=== PATIENT | male | born 1950 | race Two or more races ===

== ENCOUNTER 2021-02-05 15:01 | Inpatient (IN) | payer OTHER ==
[~2021-02-05] VITALS: Ht 172.7 cm; Wt 101.7 kg
[2021-02-05] MEDS ORDERED: dilTIAZem 25 MG/5 ML VIAL IV ONE (15:15)
[2021-02-05 15:57] LABS: Basophils # (auto) 0.1 10 ^3/uL (0-0.2); Eosinophils # (auto) 0.2 10 ^3/uL (0-0.8); Hematocrit 44.9 % (41.0-53.0); Hemoglobin 14.9 g/dL (13.5-17.5); Lymphocytes # (auto) 1.4 10 ^3/uL (0.4-5.4); Lymphocytes % (auto) 26.6 % (10.0-50.0); Mean Corpuscular Hemoglobin 29.7 pg (28.0-32.0); Mean Corpuscular Hgb Conc. 33.2 g/dL (32.0-36.0); Mean Corpuscular Volume 89.5 fL (80.0-100.0); Monocytes # (auto) 0.7 10 ^3/uL (0-1.3); Monocytes % (auto) 12.1 % (0.0-12.0); Neutrophils # (auto) 3.1 10 ^3/uL (1.6-8.6); Neutrophils % (auto) 56.3 % (37.0-80.0); Nucleated Red Blood Cells % 0.2 %; Platelet Count (auto) 313 10^3/uL (140-450); Red Blood Cells 5.01 10^6/uL (4.5-5.90); Red Cell Distribution Width 14.4 % (11.8-14.3); White Blood Cell 5.5 10^3/uL (4.4-10.8)
[2021-02-05] MEDS ORDERED: dilTIAZem 125mg/125ml BAG KIT 125 ML IV ONE (16:00)
[2021-02-05 16:17] LABS: Albumin 3.3 g/dL (3.4-5.0); Carbon Dioxide 21 mmol/L (21-32); Glucose 90 mg/dL (74-106); Magnesium 2.4 mg/dL (1.6-2.6)
[2021-02-05 16:57] LABS: Alanine Aminotransferase 26 U/L (16-61); Aspartate Aminotransferase 20 U/L (15-37); GFR African American 109 mL/min; GFR Non-African American 90 mL/min; Potassium 3.6 mmol/L (3.5-5.1); Sodium 139 mmol/L (136-145)
[2021-02-05 17:03] LABS: Alkaline Phosphatase 77 U/L (45-117); Bilirubin, Total 0.6 mg/dL (0.2-1.0); Total Protein 7.2 g/dL (6.4-8.2)
[2021-02-05 17:08] LABS: CRP High Sensitivity 0.742 mg/dL (< 0.3)
[2021-02-05 17:12] LABS: Anion Gap 10 (5-15); BUN/Creatinine Ratio 11.4; Blood Urea Nitrogen 10 mg/dL (7-18); Chloride 108 mmol/L (98-107)
[2021-02-05] MEDS ORDERED: ASPirin 81 mg TAB PO ONE (17:15)
[2021-02-05] MEDS ORDERED: LORazepam 0.5 MG TAB PO PRN (20:15)
[2021-02-05] MEDS ORDERED: MORPHINE SULF INJ 2 MG/ML SYRINGE 1ML IV PRN ×2 (20:15)
[2021-02-05] MEDS ORDERED: DOCUSATE CALCIUM 240 MG CAP PO PRN (20:15)
[2021-02-05] MEDS ORDERED: ACETAMINOPHEN 500 MG TAB PO PRN (20:15)
[2021-02-05] MEDS ORDERED: ONDANSETRON HCL 4 MG/2 ML VIAL IV PRN (20:15)
[2021-02-05] MEDS ORDERED: NITROGLYCERIN 0.4 MG SL TAB SL PRN (20:15)
[2021-02-05] MEDS ORDERED: LABETALOL HCL 5 MG/ML 4ML SYRINGE IV PRN (20:15)
[2021-02-05 22:45] VITALS: BP 121/69
[2021-02-05 23:00] VITALS: BP 121/69
[2021-02-05 23:15] VITALS: BP 109/68
[2021-02-05 23:30] VITALS: BP 107/71
[2021-02-05 23:45] VITALS: BP 106/71
[2021-02-06] VITALS (42 sets, daily range): BP systolic 73–117; BP diastolic 58–82
[2021-02-06] MEDS ORDERED: dilTIAZem 25 MG/5 ML VIAL IV ONE ×3 (00:46→00:55)
[2021-02-06 05:05] LABS: Basophils # (auto) 0.1 10 ^3/uL (0-0.2); Basophils % (auto) 2.1 % (0.0-2.0); Eosinophils # (auto) 0.3 10 ^3/uL (0-0.8); Eosinophils % (auto) 5.1 % (0.0-7.0); Hematocrit 41.1 % (41.0-53.0); Hemoglobin 13.8 g/dL (13.5-17.5); Lymphocytes # (auto) 1.2 10 ^3/uL (0.4-5.4); Lymphocytes % (auto) 21.7 % (10.0-50.0); Mean Corpuscular Hgb Conc. 33.5 g/dL (32.0-36.0); Mean Corpuscular Volume 89.7 fL (80.0-100.0); Monocytes # (auto) 0.7 10 ^3/uL (0-1.3); Monocytes % (auto) 12.2 % (0.0-12.0); Neutrophils # (auto) 3.2 10 ^3/uL (1.6-8.6); Neutrophils % (auto) 58.9 % (37.0-80.0); Nucleated Red Blood Cells % 0.1 %; Platelet Count (auto) 275 10^3/uL (140-450); Red Blood Cells 4.59 10^6/uL (4.5-5.90); Red Cell Distribution Width 14.7 % (11.8-14.3); White Blood Cell 5.5 10^3/uL (4.4-10.8)
[2021-02-06 05:21] LABS: INR 1.17 (0.9-1.15)
[2021-02-06 05:22] LABS: Albumin 2.9 g/dL (3.4-5.0); Calcium 8.5 mg/dL (8.5-10.1); Potassium 3.9 mmol/L (3.5-5.1)
[2021-02-06 05:27] LABS: BUN/Creatinine Ratio 10.3; Bilirubin, Total 0.7 mg/dL (0.2-1.0); Total Protein 6.2 g/dL (6.4-8.2)
[2021-02-06] MEDS ORDERED: AMIODARONE HCL 150 MG in D5W 5% 100 ML IV ONE (09:15)
[2021-02-06] MEDS ORDERED: FUROSEMIDE 20 MG/2 ML VIAL IV ONE (09:30)
[2021-02-06] MEDS ORDERED: ADENOSINE 89 MG in GIVE UN-DILUTED 0 ML IV STA (09:34)
[2021-02-06 09:40] LABS: Cholesterol 101 mg/dL (< 200)
[2021-02-06 09:55] LABS: HDL Cholesterol 27 mg/dL (40-59); LDL Cholesterol 68 mg/dL (< 100); Triglycerides 81 mg/dL (< 150)
[2021-02-06] MEDS ORDERED: ENOXAPARIN SOD 40 MG/0.4 ML SYRINGE SC SCH (10:00)
[2021-02-06] MEDS: AMIODARONE HCL 200 MG TAB PO SCH ×2 (11:09→22:39)
[2021-02-06] MEDS: PANTOPRAZOLE 40 MG TAB PO SCH (11:09)
[2021-02-06] MEDS ORDERED: OPTISON 3ml Vial for INJ IV ONE (12:19)
[2021-02-06] MEDS ORDERED: POTASSIUM CHL 20 Meq TABLET PO ONE (17:00)
[2021-02-06] MEDS: FUROSEMIDE 20 MG/2 ML VIAL IV SCH (18:39)
[2021-02-06] MEDS ORDERED: DIGOXIN (250MCG/ML) 2 ML AMPULE IV ONE ×2 (20:00→22:00)
[2021-02-06] MEDS ORDERED: dilTIAZem 120MG ER CAP PO ONE (21:30)
[2021-02-06] MEDS: ATORVASTATIN 20 MG TAB PO SCH (22:39)
[2021-02-06] MEDS: APIXABAN 5 MG TAB PO SCH (22:39)
[2021-02-07 05:00] VITALS: BP 122/80
[2021-02-07] MEDS: FUROSEMIDE 20 MG/2 ML VIAL IV SCH ×2 (06:32→18:26)
[2021-02-07 06:44] LABS: Basophils # (auto) 0.1 10 ^3/uL (0-0.2); Basophils % (auto) 0.9 % (0.0-2.0); Eosinophils # (auto) 0.2 10 ^3/uL (0-0.8); Eosinophils % (auto) 3.4 % (0.0-7.0); Hematocrit 43.2 % (41.0-53.0); Hemoglobin 14.5 g/dL (13.5-17.5); Lymphocytes # (auto) 0.9 10 ^3/uL (0.4-5.4); Lymphocytes % (auto) 13.7 % (10.0-50.0); Mean Corpuscular Hemoglobin 29.9 pg (28.0-32.0); Mean Corpuscular Hgb Conc. 33.5 g/dL (32.0-36.0); Mean Corpuscular Volume 89.1 fL (80.0-100.0); Monocytes # (auto) 0.7 10 ^3/uL (0-1.3); Monocytes % (auto) 10.5 % (0.0-12.0); Neutrophils # (auto) 4.8 10 ^3/uL (1.6-8.6); Neutrophils % (auto) 71.5 % (37.0-80.0); Nucleated Red Blood Cells % 0.1 %; Platelet Count (auto) 266 10^3/uL (140-450); Red Blood Cells 4.84 10^6/uL (4.5-5.90); Red Cell Distribution Width 14.7 % (11.8-14.3); White Blood Cell 6.8 10^3/uL (4.4-10.8)
[2021-02-07 07:00] LABS: Potassium 3.8 mmol/L (3.5-5.1)
[2021-02-07 07:06] LABS: BUN/Creatinine Ratio 9.5; Calcium 8.7 mg/dL (8.5-10.1)
[2021-02-07 09:00] VITALS: BP 122/74
[2021-02-07] MEDS: DIGOXIN 0.125 MG TAB PO SCH (09:06)
[2021-02-07] MEDS: POTASSIUM CHL 20 Meq TABLET PO SCH (09:06)
[2021-02-07] MEDS: AMIODARONE HCL 200 MG TAB PO SCH ×2 (09:06→21:58)
[2021-02-07] MEDS: APIXABAN 5 MG TAB PO SCH ×2 (09:06→21:58)
[2021-02-07] MEDS: PANTOPRAZOLE 40 MG TAB PO SCH (09:07)
[2021-02-07] MEDS ORDERED: dilTIAZem 120MG ER CAP PO SCH ×2 (10:00→22:00)
[2021-02-07] MEDS: LISINOPRIL 5 MG TAB PO SCH (12:38)
[2021-02-07 13:00] VITALS: BP 111/70
[2021-02-07 17:00] VITALS: BP 99/58
[2021-02-07 21:47] VITALS: BP 103/65
[2021-02-07] MEDS: ATORVASTATIN 20 MG TAB PO SCH (21:59)
[2021-02-08 04:52] VITALS: BP 117/78
[2021-02-08] MEDS: FUROSEMIDE 20 MG/2 ML VIAL IV SCH (05:51)
[2021-02-08 07:06] LABS: Basophils # (auto) 0.1 10 ^3/uL (0-0.2); Basophils % (auto) 0.7 % (0.0-2.0); Eosinophils # (auto) 0.3 10 ^3/uL (0-0.8); Eosinophils % (auto) 4.2 % (0.0-7.0); Hematocrit 45.3 % (41.0-53.0); Hemoglobin 15.1 g/dL (13.5-17.5); Lymphocytes # (auto) 1.1 10 ^3/uL (0.4-5.4); Lymphocytes % (auto) 15.7 % (10.0-50.0); Mean Corpuscular Hemoglobin 29.7 pg (28.0-32.0); Mean Corpuscular Hgb Conc. 33.3 g/dL (32.0-36.0); Mean Corpuscular Volume 89.1 fL (80.0-100.0); Monocytes # (auto) 0.8 10 ^3/uL (0-1.3); Monocytes % (auto) 11.6 % (0.0-12.0); Neutrophils # (auto) 4.9 10 ^3/uL (1.6-8.6); Neutrophils % (auto) 67.8 % (37.0-80.0); Nucleated Red Blood Cells % 0.2 %; Platelet Count (auto) 293 10^3/uL (140-450); Red Blood Cells 5.08 10^6/uL (4.5-5.90); Red Cell Distribution Width 14.3 % (11.8-14.3); White Blood Cell 7.2 10^3/uL (4.4-10.8)
[2021-02-08 07:28] LABS: Potassium 3.5 mmol/L (3.5-5.1)
[2021-02-08 07:34] LABS: BUN/Creatinine Ratio 9.1; Calcium 8.6 mg/dL (8.5-10.1)
[2021-02-08 09:00] VITALS: BP 108/67
[2021-02-08] MEDS: APIXABAN 5 MG TAB PO SCH (09:34)
[2021-02-08] MEDS: POTASSIUM CHL 20 Meq TABLET PO SCH (09:35)
[2021-02-08] MEDS: LISINOPRIL 5 MG TAB PO SCH (09:35)
[2021-02-08] MEDS: PANTOPRAZOLE 40 MG TAB PO SCH (09:35)
[2021-02-08] MEDS: DIGOXIN 0.125 MG TAB PO SCH (09:35)
[2021-02-08] MEDS: AMIODARONE HCL 200 MG TAB PO SCH (09:35)
[2021-02-08 12:48] VITALS: BP 103/73
[2021-02-08 14:10] VITALS: BP 108/67
== END 2021-02-08 16:05 | disposition home or self-care (01) | DRG 308 ==
LOC: ER 15:01 → TELE 20:12 → DOU IN ICU 22:35 → TELE-EAST 02-06 12:57
PROVIDERS: ADMIT Family Medicine; ATTEND Internal Medicine Nephrology
DX: I48.91 Unspecified atrial fibrillation (principal); I50.41 Acute combined systolic (congestive) and diastolic (congestive) heart failure; J96.01 Acute respiratory failure with hypoxia; E66.9 Obesity, unspecified; E78.5 Hyperlipidemia, unspecified; Z90.49 Acquired absence of other specified parts of digestive tract; R73.03 Prediabetes; R00.0 Tachycardia, unspecified; Z20.822 Contact with and (suspected) exposure to COVID-19
CPT/HCPCS: 36415; 71045; 78452; 80048; 80053; 80061; 82728; 83735; 83880; 84443; 84484; 85025; 85610; 86141; 87081; 87426; 93005; 93017; 93306; 96365; 96375; 99291; G0378; J0153; J7060; Q9956